=== PATIENT | female | born 1985 | race Caucasian/White ===

== ENCOUNTER 2018-05-13 06:34 | Day surgery (SDC) | payer BC, OTHER ==
[2018-05-13 07:29] LABS: URINE PREG TEST NEGATIVE (NEGATIVE)
[2018-05-13 07:30] LABS: CONTROL LINE UCG INT CTR LINE PRESENT
[2018-05-13] MEDS ORDERED: fentaNYL 100 MCG/2 ML INJECTION (J3010) As Ordered ×2 (07:51→09:23)
[2018-05-13] MEDS ORDERED: MIDAZOLAM INJ 2 MG/2 ML VIAL (J2250) As Ordered (07:51)
[2018-05-13] MEDS ORDERED: PROPOFOL 200 MG/20 ML VIAL As Ordered (07:52)
[2018-05-13] MEDS ORDERED: LIDOCAINE 2% INJ 100 MG/5 ML SDV (FOR ANES.) As Ordered (07:52)
[2018-05-13] MEDS ORDERED: ROCURONIUM BROMIDE 50 MG/5 ML VIAL As Ordered (07:54)
[2018-05-13] MEDS: LR 1,000 ML IV (08:11)
[2018-05-13 08:12] LABS: BEDSIDE GLUCOSE 88 MG/DL (70-105)
[2018-05-13] MEDS ORDERED: KETOROLAC 60 MG/2 ML VIAL (J1885) As Ordered (09:03)
[2018-05-13] MEDS ORDERED: ONDANSETRON 4MG/2ML VIAL (J2405) As Ordered (09:03)
[2018-05-13] MEDS ORDERED: dexameTHASONE 4 MG/ML 1ML VIAL (J1100) As Ordered (09:03)
[2018-05-13] MEDS ORDERED: PERCOCET 5MG/325MG TAB As Ordered (10:06)
[2018-05-13] MEDS: PERCOCET 5MG/325MG TAB PO (10:10)
[2018-05-13] MEDS ORDERED: ONDANSETRON 4MG/2ML VIAL (J2405) IV (10:30)
[2018-05-13] MEDS ORDERED: NORCO, ANEXSIA 5/325MG TABLET (HYDROcodone/ACETAMINOPHEN) PO (10:30)
[2018-05-13] MEDS ORDERED: HYDROMORPHONE HCL 0.5 MG/ 0.5 ML SYRINGE (J1170 PER 1) IV (10:30)
[2018-05-13] MEDS ORDERED: IBUPROFEN 600 MG TAB PO (10:30)
[2018-05-13] MEDS ORDERED: fentaNYL 100 MCG/2 ML INJECTION (J3010) IV (10:30)
[2018-05-13] MEDS ORDERED: LR 1,000 ML IV (10:30)
== END 2018-05-13 11:43 | disposition home or self-care (01) ==
LOC: M SDC 06:34
DX: Z30.2 Encounter for sterilization (principal); E11.9 Type 2 diabetes mellitus without complications; F32.9 Major depressive disorder, single episode, unspecified; I10 Essential (primary) hypertension; K21.9 Gastro-esophageal reflux disease without esophagitis; L40.9 Psoriasis, unspecified; E66.9 Obesity, unspecified; T88.59XD Other complications of anesthesia, subsequent encounter; L65.9 Nonscarring hair loss, unspecified; E04.1 Nontoxic single thyroid nodule; F41.9 Anxiety disorder, unspecified; R06.83 Snoring; Z68.39 Body mass index [BMI] 39.0-39.9, adult; Z91.018 Allergy to other foods; Z79.899 Other long term (current) drug therapy
CPT/HCPCS: 58670

== ENCOUNTER → 2023-02-26 | Outpatient (REF) | payer BC, OTHER ==
[~2023-02-26] MED LIST: LEXA1TAB PO; SPIR100T3 PO
== END ==
LOC: M LABCFH 14:32
PROVIDERS: ATTEND Physician Assistant
DX: Z12.4 Encounter for screening for malignant neoplasm of cervix (principal); R87.615 Unsatisfactory cytologic smear of cervix
CPT/HCPCS: 87624; G0123